=== PATIENT | male | born 1955 | race African-American/Black ===

== ENCOUNTER 2016-09-27 23:59 | Emergency (ER) | payer BC ==
[~2016-09-27 23:59] MED LIST: B-12 PO; BLOOD PRESSURE; BLOOD PRESSURE MED PO; HYDROCHLOROTHIA25 MG PO; INDOCIN SR75 MG PO; LORTAB 5-325 M1 EACH PO; PREDNISONE PO; VERAPAMIL ER120 M1 PO; VOLTAREN100 GM TP; WARFARIN PO
== END 2016-09-28 01:50 | disposition home or self-care (01) ==
LOC: CFTX 23:59
DX: S39.012A Strain of muscle, fascia and tendon of lower back, initial encounter (principal); I11.0 Hypertensive heart disease with heart failure; I50.9 Heart failure, unspecified; Z98.890 Other specified postprocedural states; Z88.8 Allergy status to other drugs, medicaments and biological substances; Z79.899 Other long term (current) drug therapy; X58.XXXA Exposure to other specified factors, initial encounter; Y92.9 Unspecified place or not applicable
CPT/HCPCS: 99283